=== PATIENT | male | born 1970 | race Caucasian/White ===

== ENCOUNTER → 2016-08-24 | Outpatient (CLI) | payer MEDICARE, OTHER ==
--- NOTE | 2016-08-24 14:52 | XR ---
EXAMINATION TYPE: XR chest 2V DATE OF EXAM: 08/24/2016 COMPARISON: Prior chest x-ray 02/17/2013 HISTORY: Cough, R05 TECHNIQUE: Frontal and lateral views of the chest are obtained. FINDINGS: There is no focal air space opacity, pleural effusion, or pneumothorax seen. The cardiac silhouette size is within normal limits. The osseous structures are intact. IMPRESSION: No acute cardiopulmonary process.
== END | disposition home or self-care (01) ==
LOC: RADXRMAIN 11:51
PROVIDERS: ATTEND Family Medicine
DX: R05 Cough (principal)
CPT/HCPCS: 71020

== ENCOUNTER → 2017-05-10 | Outpatient (CLI) | payer MEDICARE, OTHER | END | disposition home or self-care (01) | LOC: CPPFTMAIN 11:40 | PROVIDERS: ATTEND Physician Assistant | DX: R05 Cough (principal) | CPT/HCPCS: 94060; 94726; 94729 ==

== ENCOUNTER 2017-06-28 19:27 | Emergency (ER) | payer MEDICARE, OTHER ==
[2017-06-28 19:59] VITALS: RESP 18
[2017-06-28] MEDS ORDERED: LORazepam 1 MG TAB PO STA (21:19)
--- NOTE | 2017-06-28 21:23 | ED ---
General Adult HPI - General Chief complaint: Recheck/Abnormal Lab/Rx Stated complaint: anxiety/medication re-eval Time Seen by Provider: 06/28/17 20:36 Source: patient, RN notes reviewed Mode of arrival: ambulatory Limitations: no limitations - History of Present Illness Initial comments: Patient is a pleasant 47-year-old male presenting to the emergency department with concern regarding his medications. Patient states she was started on the Rexulti on the second. Patient was on 1 mg for several days then increased to 2 mg. Patient felt she was having side effects and decreased to 1 mg several days ago. Patient has been waking up with anxiety and night terrors. Patient also feels somewhat more angry than normal. No suicidal or homicidal thoughts. - Related Data Home Medications Medication Instructions Recorded Confirmed Ibuprofen [Motrin] 800 mg PO BID 09/20/15 06/28/17 Brexpiprazole [Rexulti] 1 mg PO DAILY 06/28/17 06/28/17 Carvedilol [Coreg] 6.25 mg PO BID 06/28/17 06/28/17 Valerian Root 100 mg PO DAILY 06/28/17 06/28/17 Allergies Allergy/AdvReac Type Severity Reaction Status Date / Time bupropion HCl AdvReac Seizure Verified 06/28/17 20:51 [From Wellbutrin] Review of Systems ROS Statement: Those systems with pertinent positive or pertinent negative responses have been documented in the HPI. ROS Other: All systems not noted in ROS Statement are negative. Constitutional: Denies: fever Eyes: Denies: eye pain ENT: Denies: ear pain Respiratory: Denies: cough Cardiovascular: Denies: chest pain Endocrine: Denies: fatigue Gastrointestinal: Denies: abdominal pain Genitourinary: Denies: dysuria Musculoskeletal: Denies: back pain Skin: Denies: rash Neurological: Denies: weakness Psychiatric: Reports: anxiety. Denies: homicidal thoughts, suicidal thoughts Past Medical History Past Medical History: COPD, Hypertension History of Any Multi-Drug Resistant Organisms: MRSA Date of last positivie culture/infection: 09/20/15 MDRO Source:: Face Additional Past Surgical History / Comment(s): Endoscopic sinus surgery Past Psychological History: Anxiety, Depression Smoking Status: Current every day smoker Past Alcohol Use History: None Reported Past Drug Use History: None Reported General Exam Limitations: no limitations General appearance: alert, in no apparent distress, other (No muscular rigidity) Head exam: Present: atraumatic Eye exam: Present: normal appearance, PERRL ENT exam: Present: normal oropharynx Neck exam: Present: normal inspection Respiratory exam: Present: normal lung sounds bilaterally Cardiovascular Exam: Present: regular rate, normal rhythm GI/Abdominal exam: Present: soft. Absent: tenderness Extremities exam: Present: normal inspection Neurological exam: Present: alert, CN II-XII intact. Absent: motor sensory deficit Expanded DTR: Patellar (R): 2+, Patellar (L): 2+ Psychiatric exam: Present: normal affect, normal mood Skin exam: Present: normal color Course Vital Signs 06/28/17 06/28/17 19:53 20:52 Temperature 98.0 F Pulse Rate 68 61 Respiratory 18 18 Rate Blood Pressure 181/99 183/80 O2 Sat by Pulse 97 98 Oximetry Medical Decision Making - Medical Decision Making Patient is receptive of plan of taking one Ativan tonight and follow-up with his doctor in the morning regarding his regular medications. Disposition Clinical Impression: Anxiety Disposition: HOME SELF-CARE Condition: Stable Instructions: Anxiety (ED) Additional Instructions: Please follow-up with your primary care physician and psychiatrist in the morning regarding further medication recommendations. Return for fever, muscle stiffness, thoughts of harming yourself or others, worsening symptoms or other concerns. Is patient prescribed a controlled substance at d/c from ED?: No Referrals: Carlos Jane DO [Primary Care Provider] - 1-2 days Time of Disposition: 21:23
[2017-06-28 21:43] VITALS: BP 140/65; PULSE 64; TEMP 98.1
== END 2017-06-28 21:43 | disposition home or self-care (01) ==
LOC: EC 19:27
DX: F41.9 Anxiety disorder, unspecified (principal); I10 Essential (primary) hypertension; F32.9 Major depressive disorder, single episode, unspecified; F17.200 Nicotine dependence, unspecified, uncomplicated; Z86.14 Personal history of Methicillin resistant Staphylococcus aureus infection; Z88.8 Allergy status to other drugs, medicaments and biological substances; Z79.02 Long term (current) use of antithrombotics/antiplatelets; Z79.1 Long term (current) use of non-steroidal anti-inflammatories (NSAID); Z79.899 Other long term (current) drug therapy
CPT/HCPCS: 99283

== ENCOUNTER → 2017-09-06 | Outpatient (CLI) | payer MEDICARE, OTHER ==
--- NOTE | 2017-09-06 08:02 | XR ---
EXAMINATION TYPE: XR shoulder complete RT DATE OF EXAM: 09/06/2017 COMPARISON: NONE HISTORY: Pain TECHNIQUE: Three views are submitted. FINDINGS: The osseous structures are intact. There is no acute fracture or dislocation. Mild arthropathy of th e AC joint IMPRESSION: 1. No acute process.
== END | disposition home or self-care (01) ==
LOC: RADXRMAIN 07:05
PROVIDERS: ATTEND Nurse Practitioner
DX: M25.511 Pain in right shoulder (principal)

== ENCOUNTER → 2018-01-19 | Outpatient (CLI) | payer MEDICARE, OTHER ==
--- NOTE | 2018-01-19 23:31 | MR ---
EXAMINATION TYPE: MR angio head wo con DATE OF EXAM: 01/19/2018 COMPARISON: MRI brain performed today HISTORY: 47-year-old male Headaches, hemicrania TECHNIQUE: High-resolution 3-D time of flight images focusing on the [place] were performed without contrast. Rotational 3-D reconstructions generated on a dedicated independent workstation. 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 No significant stenosis, arterial occlusion, or aneurysmal changes seen. 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 No significant stenosis, arterial occlusio n, or aneurysmal change seen.
--- NOTE | 2018-01-23 06:26 | MR ---
EXAMINATION TYPE: MR brain/cspine wo DATE OF EXAM: 01/19/2018 COMPARISON: CT 12/17/2010 HISTORY: 47-year-old male Headaches, hemicrania, neck pain TECHNIQUE: Multiplanar, multisequence images of the brain and brainstem were acquired without IV con trast. Diffusion weighted imaging is performed. Subsequent multiplanar, multisequence images of the l umbar spine without contrast. FINDINGS: BRAIN: No evidence for acute infarction, hemorrhage, mass, mass effect, midline shift, herniation, effacemen t of basal cisterns, or extra-axial fluid collection. The ventricles and sulci are age-appropriate. Major intracranial flow voids are intact. T2/FLAIR weighted sequences show no white matter signal abnormality. Midline structures demonstrate normal morphology. The craniocervical junction is normal. Minimal mucosal thickening within the ethmoid air cells. Globes are intact. CERVICAL SPINE: No craniocervical junction abnormality, predental space widening, or prevertebral soft tissue swellin g. Preserved alignment of the cervical spine. There is mild multilevel degenerative disc disease characterized by mild disc desiccation and mild po sterior disc bulging particularly at the 3-C4. Scattered mild to moderate facet degenerative change. No prevertebral or paravertebral soft tissue abnormality. At C2-C3, there is left greater than right mild facet arthropathy with mild left neuroforaminal steno sis. No spinal canal stenosis. At C3-C4, there is broad-based posterior disc bulge with uncovertebral joint and facet degenerative c hange mildly narrowing the right-sided neuroforamen. There is ventral impression on to the thecal sac but no significant spinal canal stenosis. At C4-C5, uncovertebral joint and facet degenerative change with mild left neural foraminal stenosis. No spinal canal stenosis. At C5-C6, there is a right paracentral disc protrusion which abuts and minimally flattens the right v entral cord. Additional uncovertebral joint and facet degenerative change. Changes contribute to mild right neuroforaminal stenosis. No significant spinal canal stenosis. At C6-C7, there is a broad-based posterior disc bulge with superimposed central protrusion. This impr esses on the ventral thecal sac but does not cause significant spinal canal stenosis. Mild facet and uncovertebral joint degenerative changes present without significant neuroforaminal stenosis. At C7-T1, no significant canal or foraminal stenosis. COMBINED IMPRESSION: BRAIN: 1. No intracranial abnormality seen CERVICAL SPINE: 1. Mild multilevel degenerative disc disease as well as scattered mild facet and uncovertebral joint arthropathy. 2. Broad-based posterior disc bulge at C3-C4 impresses on the ventral thecal sac without significant spinal canal stenosis. 3. A small right paracentral herniation at C5-C6 abuts and slightly flattens the right ventral cord, but again, does not contribute to any significant spinal canal stenosis. 4. Variable mild neuroforaminal stenoses as outlined above.
== END | disposition home or self-care (01) ==
LOC: RADMRIMAIN 11:11
PROVIDERS: ATTEND Psychiatry & Neurology Neurology
DX: Q28.8 Other specified congenital malformations of circulatory system (principal); M99.71 Connective tissue and disc stenosis of intervertebral foramina of cervical region; M50.21 Other cervical disc displacement, high cervical region; M50.31 Other cervical disc degeneration, high cervical region; M46.92 Unspecified inflammatory spondylopathy, cervical region
CPT/HCPCS: 70544; 70551; 72141

== ENCOUNTER → 2018-06-09 | Outpatient (CLI) | payer MEDICARE, OTHER ==
[2018-06-09 16:52] LABS: Basophils # (A) 0.1 k/uL (0-0.2); Basophils % (A) 1 %; Eosinophils # (A) 0.2 k/uL (0-0.7); Eosinophils % (A) 2 %; HCT 46.2 % (39.0-53.0); HGB 15.7 gm/dL (13.0-17.5); Lymphocytes # (A) 3.4 k/uL (1.0-4.8); Lymphocytes % (A) 30 %; MCH 29.6 pg (25.0-35.0); MCHC 33.9 g/dL (31.0-37.0); MCV 87.1 fL (80.0-100.0); Mean Platelet Volume 9.4; Monocytes # (A) 0.7 k/uL (0-1.0); Monocytes % (A) 6 %; Neutrophils # (A) 6.6 k/uL (1.3-7.7); Neutrophils % (A) 59 %; Platelet Count 195 k/uL (150-450); RDW 13.3 % (11.5-15.5); WBC 11.1 k/uL (3.8-10.6)
[2018-06-09 23:09] LABS: ALT 16 U/L (10-49); AST 24 U/L (14-35); Alkaline Phosphatase 62 U/L (41-126); Bilirubin, Conjugated <0.20 mg/dL (0.20-0.40); Total Bilirubin 0.2 mg/dL (0.3-1.2); Total Protein 6.6 g/dL (6.2-8.2)
[2018-06-09 23:19] LABS: Valproic Acid (Depakene) 42.8 ug/mL (50.0-100.0)
== END ==
LOC: LABWHC1 15:32
PROVIDERS: ATTEND Nurse Practitioner
DX: Z51.81 Encounter for therapeutic drug level monitoring (principal); Z79.899 Other long term (current) drug therapy
CPT/HCPCS: 36415; 80076; 80164; 85025